=== PATIENT | female | born 1975 | race Hispanic/Latino ===

== ENCOUNTER 2017-06-18 09:00 | Day surgery (SDC) | payer OTHER ==
[2016-09-05 08:51] VITALS: BMI 22.5
[2017-06-18 09:26] VITALS: RESP 18
[2017-06-18 09:30] LABS: HEMATOCRIT 42.6 % (34.0-47.0); MEAN CELL VOLUME 97.3 fl (81.0-99.0); MEAN CORPUSCULAR HEMOGLOBIN 32.9 pg (27.0-31.0); MEAN CORPUSCULAR HGB CONC 33.8 g/dL (33.0-37.0); RED CELL DISTRIBUTION WIDTH 13.6 % (11.5-14.5); WHITE BLOOD COUNT 4.7 K/uL (4.8-10.8)
[2017-06-18] MEDS ORDERED: Propofol 10 mg/ml Inj (20 ML) ONE (11:31)
[2017-06-18] MEDS ORDERED: Midazolam 2 MG/2 ML VIAL ONE (11:31)
[2017-06-18] MEDS ORDERED: Lactated Ringer's 1,000 ML IV ONE (12:15)
[2017-06-18] MEDS ORDERED: Sodium Chloride 0.9% 100 ML IV ONE (12:20)
[2017-06-18] MEDS ORDERED: Dexamethasone 4 mg/1 ml ONE (12:30)
[2017-06-18] MEDS ORDERED: ePHEDrine 50 mg/ml Inj ONE (12:49)
[2017-06-18] MEDS ORDERED: Lactated Ringer's 1,000 ML IV PRN (13:19)
[2017-06-18 13:31] VITALS: O2SAT 100
[2017-06-18 14:27] VITALS: BP 102/68; PULSE 62; TEMP 98
--- NOTE | 2017-06-20 15:41 | OP ---
PROCEDURE DATE: 06/18/2017 SURGEON: Chente Peres MD ANESTHESIA: General endotracheal. PREOPERATIVE DIAGNOSES: Missed and history of multiple losses. POSTOPERATIVE DIAGNOSES: Missed and history of multiple losses. PROCEDURE PERFORMED: Suction dilation and curettage. COMPLICATIONS: None. SAMPLE: Pathology product of conception sent for genetic micro-array testing along with two vials of maternal blood for testing. DESCRIPTION OF THE PROCEDURE: After adequate anesthesia was obtained, the patient was placed in the dorsal lithotomy position with adequate padding. She was prepped and draped. The surgeon donned a glove. The bladder was empty and exam under anesthesia was performed revealing a 7-week size uterus, anteverted. At this point, a speculum was placed in the vagina. The anterior lip of the cervix was grasped and the cervix was gently dilated. A #7 curved suction curette was inserted in the uterine cavity. The cavity was emptied. No sharp curetting was necessary as abundant products of conception were obtained. The uterus was gently massaged. There was no bleeding. All the instruments were removed. The patient was awakened up and sent to recovery room in excellent condition. Please note that prophylactic antibiotics of 1 g of Ancef was given prior to the beginning of the procedure. Chente Peres MD MTDD
== END 2017-06-18 15:00 | disposition home or self-care (01) ==
LOC: H.OPSURG 09:00
PROVIDERS: ATTEND Obstetrics & Gynecology Reproductive Endocrinology
DX: O02.1 Missed abortion (principal)
CPT/HCPCS: 36415; 59820; 85027; 86850; 86900; 88305; J0690; J1100; J2001; J2250; J2405; J2704; J2792; J3010; J7030; J7120